=== PATIENT | male | born 2005 | race Two or more races ===

== ENCOUNTER 2025-02-03 11:26 | Emergency (ER) | payer MEDICAID, SELFPAY ==
[2025-02-03 11:42] VITALS: BP 127/81; PULSE 148; RESP 19; TEMP 39.4; O2SAT 96; BMI 36.3
[2025-02-03 12:20] VITALS: TEMP 39.4
[2025-02-03] MEDS: ACETAMINOPHEN 500 MG TABLET 1000 MG PO (12:20)
[2025-02-03] MEDS: IBUPROFEN TAB 400 MG TABLET 800 MG PO (12:20)
--- NOTE | 2025-02-03 12:43 | PD.EDURI ---
Upper Respiratory Inf. RME/HPI General Chief Complaint: Dental/Oral/Throat Stated Complaint: Sore throat, fever, cough X 3 days Time Seen by Provider: 02/03/25 11:28 Arrival date/time: 02/03/25 11:26 19-year-old male presents to the Emergency Department of complaint of sore throat fever cough and congestion ongoing x 3 days. Limitations: no limitations Related Data Previous Rx's ?Medication ?Instructions ?Recorded dicyclomine 10 mg capsule 10 mg PO BID #14 caps 07/22/20 acetaminophen 500 mg capsule 1,000 mg (2 x 500 mg) PO Q8HR PRN 02/03/25 pain #30 caps benzonatate 100 mg capsule 100 mg PO TID #14 caps 02/03/25 ibuprofen 800 mg tablet 800 mg PO TID PRN pain #30 tabs 02/03/25 Allergies Allergy/AdvReac Type Severity Reaction Status Date / Time No Known Allergies Allergy Verified 02/03/25 11:30 Review of Systems Review of Systems Systems Reviewed: All systems reviewed, normal except as documented Constitutional Constitutional: Reports system reviewed and no additional complaints, except as documented, Denies fever(s) and Reports headache(s) Eyes Eyes: Reports system reviewed and no additional complaints, except as documented and Denies blurry vision ENT Ears, Nose, Mouth, and Throat: Reports system reviewed and no additional complaints, except as documented, Reports headache(s), Reports nasal congestion and Reports nasal discharge Cardiovascular Cardiovascular: Reports system reviewed and no additional complaints, except as documented, Denies chest pain and Denies dyspnea Respiratory Respiratory: Reports system reviewed and no additional complaints, except as documented, Reports chest congestion, Reports cough and Denies dyspnea Gastrointestinal Gastrointestinal: Reports system reviewed and no additional complaints, except as documented and Denies abdominal pain Integumentary/Breasts Skin/Breast: Reports system reviewed and no additional complaints, except as documented and Denies rash Neurologic Neurologic: Reports system reviewed and no additional complaints, except as documented, Reports as per HPI and Reports headache(s) Past Medical History Past Medical History CARDIAC: Negative Congestive Heart Failure RESPIRATORY: Negative Chronic Obstructive Pulmonary Disease (COPD) GENITOURINARY: Negative Renal Disease ENDOCRINE: Negative Diabetes Mellitus Type 1 or Diabetes Mellitus Type 2 Social History SMOKING STATUS: Current some day smoker ED Exam General Limitations: Present no limitations General appearance: Present alert and in no apparent distress Head Head exam: Present atraumatic Eye Eye exam: Present normal appearance, PERRL and EOMI ENT ENT exam: Present normal exam, normal oropharynx and mucous membranes moist Neck Neck exam: Present normal inspection, full ROM and trachea midline Chest Chest inspection: Present normal inspection and symmetric chest wall rise Respiratory Respiratory exam: Present normal lung sounds bilaterally Cardiovascular Cardiovascular exam: Present regular rate, normal rhythm and normal heart sounds Abdominal Exam Abdominal exam: Present soft and normal bowel sounds Extremities Exam Extremities exam: Present normal inspection and full ROM Back Exam Back exam: Present normal inspection and full ROM Neurological Exam Neurological exam: Present alert, oriented X3 and CN II-XII intact Psychiatric Psychiatric exam: Present normal affect and normal mood Skin Skin exam: Present warm, dry, intact and normal color Course Quality Measures none Orders Category Date Time Status Bedside Influenza A&B Antigen Test NOW Care 02/03/25 11:46 Completed Bedside STREP Test NOW Care 02/03/25 11:46 Active Acetaminophen Tab [Tylenol ES Tab] Med 02/03/25 11:47 Discontinued 1,000 mg PO X1 ONE Ibuprofen Tab [Motrin Tab] Med 02/03/25 11:47 Discontinued 800 mg PO X1 ONE Vital Signs Vital signs: Vital Signs Temperature 103.0 F H 02/03/25 11:42 Pulse Rate 148 H 02/03/25 11:42 Respiratory Rate 19 02/03/25 11:42 Blood Pressure 127/81 02/03/25 11:42 Pulse Oximetry (%) 96 02/03/25 11:42 Oxygen Delivery Method Room Air 02/03/25 11:42 O2 saturation 96% on room air within normal limits Upper Respiratory Infection MDM Narrative MDM Narrative:: 19-year-old male presents to the Emergency Department of complaint of sore throat fever cough and congestion ongoing x 3 days. On exam well-appearing does not appear look toxic no acute distress On exam patient symptoms highly consistent with viral illness Patient checked for flu and strep patient has positive for flu Symptoms highly consistent with influenza patient does not appear ill or toxic no difficulty breathing no retractions no abdominal pain Patient discharged home in no distress to follow-up with primary care doctor in the next 24 to 48 hours and for any worsening symptoms to return to the ER immediately Patient data External records reviewed:: [facility] previous records Clinical information provided by:: patient Social determinants that could affect healthcare access:: none Patient has the following chronic illnesses:: None How is presenting disease/condition affected by chronic disease/condition?: no chronic disease Evaluation data The following diagnostics were reviewed and interpreted by me:: lab results Lab and/or radiology exams considered but not ordered:: Lab obtained Interpretation Summary: Reviewed by me Medications / Prescriptions Medications or Prescriptions considered but not ordered:: Given Medication administrations:: Medication Administration History Discontinued Medications Acetaminophen (Acetaminophen 500 Mg Tablet) 1,000 mg PO X1 ONE Stop: 02/03/25 11:48 Last Admin: 02/03/25 12:20 Dose: 1,000 mg Documented By: Ibuprofen (Ibuprofen Tab 400 Mg Tablet) 800 mg PO X1 ONE Stop: 02/03/25 11:48 Last Admin: 02/03/25 12:20 Dose: 800 mg Documented By: Given Consultations Consultation(s) initiated? (list below): No Diagnosis Upper Respiratory Differential Diagnosis: upper respiratory infection, viral infection, bronchitis and influenza Most likely diagnosis given after review of the tests above:: Influenza Admission Indicated Admission indicated?: not indicated Admission Request Was there a request for admission?: No Disposition Plan Disposition Plan: Discharge Discharge Attestation Discharge Attestation: The patient and all family members were given an opportunity to ask questions and understood the discharge instructions. Discharge instructions specifically effects, indications for sooner follow up or return to the emergency department, and the expected course of current diagnosis. Patient condition: Stable Discharge Plan Plan Patient Disposition: HOME (Self Care) Discharge Disposition comment: Stable Prescriptions/Referrals Prescriptions/Med Rec: New ibuprofen 800 mg tablet 800 mg PO TID PRN (Reason: pain) Qty: 30 0RF benzonatate 100 mg capsule 100 mg PO TID Qty: 14 0RF acetaminophen 500 mg capsule 1,000 mg PO Q8HR PRN (Reason: pain) Qty: 30 0RF No Action dicyclomine 10 mg capsule 10 mg PO BID Qty: 14 0RF Problem List Clinical Impression: Influenza A Patient/Caregiver Discharge Instructions Education Materials: ED Influenza (Adult) Additional Instructions: Please follow up with your primary care doctor in the next 24-48hrs for any worsening symptoms return here immediately Print Language: Wallisian Stand Alone Forms: Damari Award Info., Work/School Release, Patient Portal Info Letter PA/DRIER FEEDER Supervising Physician PA/DRIER FEEDER Supervising Physician: Dr. laird
[2025-02-03 12:50] VITALS: TEMP 37.9
== END 2025-02-03 14:00 | disposition home or self-care (01) ==
LOC: SERX 14:08
PROVIDERS: Emergency Provider Nurse Practitioner Primary Care
DX: J10.1 Influenza due to other identified influenza virus with other respiratory manifestations (principal); F17.210 Nicotine dependence, cigarettes, uncomplicated; F17.290 Nicotine dependence, other tobacco product, uncomplicated
CPT/HCPCS: 87502; 87651; 99282; A9270